=== PATIENT | female | born 1995 | race Caucasian/White ===

== ENCOUNTER 2023-12-23 15:00 | Emergency (ER) | payer MEDICAID, SELFPAY ==
[2023-12-23 15:15] VITALS: BP 123/72; PULSE 105; RESP 20; TEMP 38.3; O2SAT 99; BMI 24.2
[2023-12-23 15:30] LABS: Coronavirus 19, PCR Not Detected (NotDetected); Influenza B, PCR Not Detected (NotDetected)
[2023-12-23] MEDS: MAGNESIUM SULFATE IN WATER 2 GM/50 ML PIGGYBACK IV (15:44)
[2023-12-23] MEDS: METOCLOPRAMIDE HCL 10MG/2ML VIAL 5 MG IVP (15:44)
[2023-12-23] MEDS: diphenhydrAMINE 50MG/ML VIAL 25 MG IV (15:44)
[2023-12-23] MEDS: DEXAMETHASONE 4MG/ML 1ML VIAL 10 MG IV (15:44)
[2023-12-23] MEDS: KETOROLAC 30MG/ML VIAL 15 MG IV (15:44)
[2023-12-23] MEDS: 0.9 % SODIUM CHLORIDE 1000ML 1,000 ML 999 ML IV (15:44)
--- NOTE | 2023-12-23 15:44 | ED_ITS ---
Discharge Plan Disposition Patient Disposition: Home, Self-Care Condition: Good Prescriptions Prescriptions: New metoclopramide HCl [Reglan] 10 mg tablet 10 mg PO Q6H PRN (Reason: nausea and vomiting) Qty: 12 0RF Referrals Follow up/Referrals: Provider,Referral, [Primary Care Provider] - See instructions Activity Restrictions/Add. Instructions Additional Instructions/Restrictions: You were evaluated in the emergency department today. 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 Take Tylenol and ibuprofen every 4-6 hours at home as needed for pain/fever. Follow- up closely with your primary care provider. Return to the emergency department for new or worsening symptoms Clinical Impressions Clinical Impression: Influenza A, Headache Stand Alone Forms Stand Alone Forms: Work/School Release Instructions Patient Instructions: DI for Influenza -- Child, DI for Viral Syndrome, DI for Headache Print Language Print Language: Panamanian Discharge ED Provider: [facility] HPI General Chief complaint: Upper Respiratory Infection Stated complaint: headache fever body aches Time Seen by Provider: 12/23/23 15:18 Mode of Arrival: Ambulatory Source of Information: Patient Limitations: No Limitations Description of Symptoms (Recalled from ER Triage Doc. by RN): pt presents to the er for headache and body aches since last , fever, and decreased appetite since saturday, states headache is a constant pressure rating it 8/10, no relief with tylenol or ibuprofren, no meds taken since this am, headache is in the frontal lobe, also reports congestion History of Present Illness HPI narrative: This patient is a 28-year-old female with a history of partial hysterectomy presented to the emergency department for evaluation with concern for headache, body aches, congestion, cough, nausea, fever, and poor appetite since Saturday 2 days ago. She notes that the headache is constant pressure is 8 out of 10 and does not get better with Tylenol or ibuprofen. She has not taken anything since this morning. No sustained visual disturbance, numbness, tingling, neck pain or stiffness, altered mental status, or other concerns. She denies chest pain or shortness of breath and also denies localizable abdominal pain or changes in bowel movements. Related Data Previous Rx's ?Medication ?Instructions ?Recorded metoclopramide HCl 10 mg tablet 10 mg PO Q6H PRN nausea and 11/11/24 (Reglan) vomiting #12 tabs Allergies Allergy/AdvReac Type Severity Reaction Status Date / Time azithromycin Allergy Other Verified 12/23/23 15:26 morphine Allergy Other Verified 12/23/23 15:26 [facility] Disclaimer: The information contained in this section may have been updated after the patient was seen, as this information can be updated by other users. Surgical History History of tubal ligation Hx of removal of ovary History of partial hysterectomy Social History Smoking Status: Current every day smoker tobacco type: cigarettes packs per day: 1 alcohol intake: never current occupational status: other Travel in the last 8 weeks: None ROS Obtained: Yes All systems reviewed & no additional complaints except as documented Physical Exam General General appearance: alert and in no apparent distress Head Head exam: atraumatic and normocephalic Eye Eye exam: Present normal appearance, PERRL and EOMI ENT ENT exam: Present normal oropharynx, mucous membranes moist, normal external ear exam and other (Nasal congestion noted) Neck Neck exam: Present normal inspection, full ROM and trachea midline; Absent tenderness Chest Chest inspection: Present normal inspection and symmetric chest wall rise; Absent tenderness Respiratory Respiratory exam: Present normal lung sounds bilaterally; Absent respiratory distress, wheezes, stridor or accessory muscle use Cardiovascular Cardiovascular exam: Present regular rate and normal rhythm Abdominal Exam Abdominal exam: Present soft; Absent distention, tenderness or guarding Extremities Exam Extremities exam: Present normal inspection, full ROM and normal capillary refill; Absent tenderness or edema Back Exam Back exam: Present normal inspection and full ROM; Absent tenderness Neurological Exam Neurological exam: Present alert, oriented X3, CN II-XII intact and normal gait; Absent motor sensory deficit Psychiatric Psychiatric exam: Present normal affect and normal mood Skin Skin exam: Present warm and dry Medical Decision Making Medical Records Medical records reviewed: Yes I reviewed the patient's medical records. Screening: Per USPSTF and CDC recommendations, given the prevalence of disease in our region, it is our hospital?s policy to screen for HIV and viral Hepatitis for all patients aged 18 and over and those with ongoing risk factors. Rubén Inquiry Pt receiving controlled substance: No Vital Signs: 12/23/23 15:15 12/23/23 17:06 Temperature 101 F H 99.0 F Temperature Source Oral Pulse Rate 102 H Pulse Rate [Left Radial] 105 H Respiratory Rate 20 18 Blood Pressure 113/58 L Blood Pressure [Right Arm] 123/72 Blood Pressure Mean [Right Arm] 89 Blood Pressure Source [Right Arm] Automatic Cuff Blood Pressure Position [Right Arm] Sitting 02 Sat by Pulse Oximetry 99 Oxygen Delivery Method Room Air Room Air Lab Data Lab results reviewed: Yes I reviewed the patient's lab results. Lab Results 12/23/23 15:20: SARS-CoV-2 (PCR) Not detected, Influenza A Untype (PCR) Detected A, Influenza Type B (PCR) Not detected Orders (Tests/Meds): ED MEDICATIONS Discontinued Medications Generic Name Dose Route Start Last Admin Trade Name Freq PRN Reason Stop Dose Admin Acetaminophen 1,000 mg 12/23/23 15:29 12/23/23 15:45 Acetaminophen 500mg Tab PO 12/23/23 15:30 1,000 mg ONCE ONE Administration Dexamethasone Sodium Phosphate 10 mg 12/23/23 15:29 12/23/23 15:44 Dexamethasone 4mg/Ml 1ml Vial IV 12/23/23 15:30 10 mg ONCE ONE Administration Diphenhydramine HCl 25 mg 12/23/23 15:29 12/23/23 15:44 Diphenhydramine 50mg/Ml Vial IV 12/23/23 15:30 25 mg ONCE ONE Administration Lactated Ringer's 1,000 mls @ 999 mls/hr 12/23/23 15:29 12/23/23 15:45 Lactated Ringer's 1000 Ml Bag IV 12/23/23 16:29 Not Given .Q1H1M ONE Magnesium Sulfate 2 gm in 50 mls @ 50 mls/hr 12/23/23 15:29 12/23/23 15:44 Magnesium Sulfate 2gm/50ml Premix IV 12/23/23 16:28 50 mls/hr ONCE ONE Administration Sodium Chloride 1,000 mls @ 999 mls/hr 12/23/23 15:31 12/23/23 15:44 Sod Chlor 0.9% 1000ml Bag IV 12/23/23 16:31 999 mls/hr .Q1H1M ONE Administration Ketorolac Tromethamine 15 mg 12/23/23 15:29 12/23/23 15:44 Ketorolac 30mg/Ml Vial IV 12/23/23 15:30 15 mg ONCE ONE Administration Metoclopramide HCl 5 mg 12/23/23 15:29 12/23/23 15:44 Metoclopramide Hcl 10mg/2ml Vial IVP 12/23/23 15:30 5 mg ONCE ONE Administration ORDERS Category Date Time Status Rapid PCR Covid and Flu A/B Stat Lab 12/23/23 15:20 Completed Medical Decision Narrative: In summary, this patient is a 28-year-old female presenting to the Emergency Department for evaluation of cough, congestion, fevers, body aches, nausea, vomiting. Differential diagnoses considered include but are not limited to viral syndrome, pneumonia, sinusitis. Ruling out the most morbid conditions drove assessment. On exam, the patient is sitting upright in chair in no acute distress. She is neurologically intact. She does have nasal congestion. Based on short duration of symptoms as well as constellation of symptoms, I feel she likely has a viral syndrome. Viral swab was sent. I do not feel that other labs or imaging are indicated based on reassuring workup and exam. Patient agreeable to receive IV migraine cocktail of a liter bolus of IV fluids, Reglan, Benadryl, Toradol, dex amethasone, magnesium. On reassessment, the patient is resting company with improved symptoms. She is positive for flu A, which I feel is the cause of her symptoms. Given improvement in symptoms and diagnosis of viral syndrome, I feel that she is appropriate for discharge home with prescription for Reglan and instructions for supportive management. Strict return precautions were given Critical Care Critical Care Time Critical Care Time: No
[2023-12-23] MEDS: ACETAMINOPHEN 500MG TAB 1000 MG PO (15:45)
[2023-12-23 15:55] LABS: Influenza A, PCR Detected (NotDetected)
[2023-12-23 17:06] VITALS: BP 113/58; PULSE 102; RESP 18; TEMP 37.2; O2SAT 98
== END 2023-12-23 17:06 | disposition home or self-care (01) ==
PROVIDERS: Emergency Provider Emergency Medicine
DX: J10.1 Influenza due to other identified influenza virus with other respiratory manifestations (principal); R51.9 Headache, unspecified; M79.10 Myalgia, unspecified site; R50.9 Fever, unspecified; R63.8 Other symptoms and signs concerning food and fluid intake; R09.81 Nasal congestion; R05.9 Cough, unspecified; R11.0 Nausea
CPT/HCPCS: 87636; 96361; 96365; 96374; 96375; 99283; J1100; J1200; J1885; J2765; J3475; J7030

== ENCOUNTER 2024-05-28 19:49 | Emergency (ER) | payer MEDICAID, SELFPAY ==
[2024-05-28 20:04] VITALS: BP 122/65; PULSE 97; RESP 18; TEMP 36.8; O2SAT 100; BMI 21.8
[2024-05-28 22:33] VITALS: BP 000/00; PULSE 0; RESP 0; TEMP -17.7; TEMP 0; O2SAT 0
--- NOTE | 2024-05-28 22:33 | PC.NURSE ---
in to examine patient and she was no longer in the room
== END 2024-05-28 22:35 | disposition left against medical advice (07) ==
PROVIDERS: Emergency Provider Emergency Medicine; PCP Family Medicine
DX: Z53.21 Procedure and treatment not carried out due to patient leaving prior to being seen by health care provider (principal)
CPT/HCPCS: 99211